=== PATIENT | female | born 1990 | race Caucasian/White ===

== ENCOUNTER 2016-07-18 20:01 | Emergency (ER) | payer BC ==
[~2016-07-18] VITALS: Ht 157.5 cm; Wt 72.7 kg
[2016-07-18] MEDS ORDERED: SODIUM CHLORIDE FLUSH 3 ML SYR IV PRN (20:35)
[2016-07-18] MEDS ORDERED: SODIUM CHLORIDE FLUSH 10 ML SYR IV PRN (20:35)
[2016-07-18] MEDS ORDERED: ONDANSETRON 2 MG/ML (Z0FRAN) 2 ML VIAL IV ONE (20:35)
[2016-07-18 21:05] LABS: MEAN CORPUSCULAR HEMOGLOBIN 29.2 PG (26.0-34.0); MEAN CORPUSCULAR VOLUME 82 FL (80-100); MEAN PLATELET VOLUME 10.6 FL (6.0-9.5); PLATELET COUNT 263 10^3uL (150-450); WHITE BLOOD COUNT 15.48 10^3uL (4.0-11.0)
[2016-07-18 21:10] LABS: MEAN CORPUSCULAR HGB CONC 35.6 g/dL (31.0-37.0)
[2016-07-18 21:14] LABS: ALBUMIN 4.2 g/dL (3.4-5.0); ANION GAP 18.9 MEQ/L (3-15); CALCULATED IONIZED CALCIUM 4.1 mg/dL (3.8-4.6); TOTAL PROTEIN 7.6 g/dL (6.4-8.5)
--- NOTE | 2016-07-18 21:34 | NUR ---
NO FURTHER NAUSEA OR VOMITTING PT STATED SHE FEELS BETTER
[2016-07-18 21:59] LABS: COLOR,URINE Yellow; GLUCOSE, URINE (UA) Negative (Negative); LEUKOCYTE ESTERASE ,URINE Negative (Negative)
[2016-07-18 22:00] LABS: BILIRUBIN,URINE 1+ (Negative); CLARITY,URINE Slightly Cloudy
[2016-07-18 22:01] LABS: URINE CENTRIFUGED VOLUME 12 mL
[2016-07-18 22:04] LABS: RBC,URINE 0-2 /HPF
[2016-07-18 22:11] LABS: BAND NEUTROPHILS % 5 % (0-6); EOSINOPHILS % 0 % (0-4); LYMPHOCYTES # 1.2 #; MONOCYTES # 0.6 #; MONOCYTES % 4 % (3-11); SEGMENTED NEUTROPHILS % 83 % (51-67); TOTAL CELLS COUNTED 100
[2016-07-18 22:12] LABS: RBC MORPH NORMAL (NORMAL)
[2016-07-18] MEDS ORDERED: ED- ONDANSETRON ODT 4 MG (ZOFRAN) 4 TABLETS/BTL PO ONE (23:30)
[2016-07-18 23:55] VITALS: BP 111/53
== END 2016-07-18 23:39 | disposition home or self-care (01) ==
LOC: ED 20:05
DX: O26.891 Other specified pregnancy related conditions, first trimester (principal); E86.0 Dehydration; K85.90 Acute pancreatitis without necrosis or infection, unspecified; A08.4 Viral intestinal infection, unspecified
CPT/HCPCS: 36415; 80053; 81003; 81015; 82150; 83605; 83690; 85025; 96361; 96374; 99284; J2405; J7030; 99283